=== PATIENT | male | born 1945 | race Caucasian/White ===

== ENCOUNTER 2022-06-11 10:55 | Day surgery (SDC) | payer OTHER ==
[2022-06-06 10:21] LABS: BASOPHILS # (AUTO) 0.1 X10'3 (0-0.2); BASOPHILS % (AUTO) 0.8 % (0-1); EOSINOPHILS # (AUTO) 0.5 X10'3 (0-0.9); EOSINOPHILS % (AUTO) 6.5 % (0-6); HEMATOCRIT 45.8 % (42.0-52.0); HEMOGLOBIN 15.3 g/dl (14.0-17.9); LYMPHOCYTES # (AUTO) 1.2 X10'3 (1.1-4.8); MEAN CORPUSCULAR HEMOGLOBIN 30.9 PG (27.0-31.0); MEAN CORPUSCULAR HGB CONC 33.5 g/dL (33.0-36.5); MEAN CORPUSCULAR VOLUME 92.3 FL (78-98); MONOCYTES # (AUTO) 0.5 X10'3 (0-0.9); MONOCYTES % (AUTO) 7.4 % (2-12); NEUTROPHILS # (AUTO) 4.8 X10'3 (1.8-7.7); NEUTROPHILS % (AUTO) 68.3 % (42-75); PLATELET COUNT 188 X10'3 (140-440); RED BLOOD COUNT 4.96 X10'6 (4.70-6.10); RED CELL DISTRIBUTION WIDTH 14.1 % (11.5-14.5); WHITE BLOOD COUNT 7.1 X10'3 (4.5-11.0)
[2022-06-06 10:30] LABS: APTT 30 SECONDS (22-32)
[2022-06-06 10:33] LABS: ANION GAP 6 (8-16); BLOOD UREA NITROGEN 14 MG/DL (7-18); BUN/CREATININE RATIO 15.4 (5.4-32.0); CHLORIDE 99 MMOL/L (99-107); CHOL/HDL RATIO 2.5 (0.00-4.99); CHOLESTEROL 140 MG/DL (0-200); CREATININE 0.91 MG/DL (0.60-1.10); GLUCOSE 98 MG/DL (70-104); HDL CHOLESTEROL 57 MG/DL (35-60); LDL CHOLESTEROL 72 MG/DL (50-100); SODIUM 137 MMOL/L (135-145); TOTAL CARBON DIOXIDE 32.1 MMOL/L (24-32); TRIGLYCERIDES 73 MG/DL (20-135); eGFR 81 ML/MIN
[~2022-06-11] VITALS: Ht 175.3 cm; Wt 92.3 kg
[2022-06-11] VITALS (8 sets, daily range): BP systolic 129–151; BP diastolic 70–86
[2022-06-11] MEDS ORDERED: LORazepam 0.5 MG tablet PO PRN (11:05)
[2022-06-11] MEDS ORDERED: diphenhydrAMINE 25mg capsule PO PRN (11:05)
[2022-06-11] MEDS ORDERED: normal saline 1,000 ML IV SCH (11:05)
[2022-06-11] MEDS ORDERED: CARB-17 PO (11:18)
[2022-06-11] MEDS ORDERED: ATOR40TA PO (11:19)
[2022-06-11] MEDS ORDERED: ASPI-1265 PO (11:19)
[2022-06-11] MEDS ORDERED: TRIAMCINOLONE (11:20)
[2022-06-11] MEDS ORDERED: PROP10TA10 PO (11:21)
[2022-06-11] MEDS ORDERED: HYDR25TA5 PO (11:22)
[2022-06-11] MEDS ORDERED: TRIH2TAB3 PO (11:23)
[2022-06-11] MEDS ORDERED: OMEG-5 PO (11:24)
[2022-06-11] MEDS ORDERED: [UNRECOGNIZED DRUG - CODE] (11:24)
[2022-06-11] MEDS ORDERED: nitroGLYCERIN-Tridil 50MG/D5W 250 ML IV ONE (13:28)
[2022-06-11] MEDS ORDERED: midazolam 1 mg/ML 2ml injection ONE (13:28)
[2022-06-11] MEDS ORDERED: verapamil 2.5 mg/ml inj IV ONE (13:28)
[2022-06-11] MEDS ORDERED: LIDOcaine 1% (10mg/ml) 2ml vial ONE (13:28)
[2022-06-11] MEDS ORDERED: iohexol 350MG/ML 100ml bottle IV ONE (13:29)
[2022-06-11] MEDS ORDERED: fentaNYL/PF 50MCG/1 ML 2ML syringe ONE (13:29)
[2022-06-11] MEDS ORDERED: heparin 1,000unit/ml 10ml vial 10 ML ONE (13:29)
[2022-06-11] MEDS ORDERED: LIDOcaine 1% 30ml preserv. free vial ONE (15:45)
[2022-06-11] MEDS ORDERED: HYDROcodone/acetaminophen 10/325mg tab PO PRN (16:35)
[2022-06-11] MEDS ORDERED: HYDROcodone/acetaminophen 5mg/325mg tablet PO PRN (16:35)
== END 2022-06-11 19:00 | disposition home or self-care (01) ==
LOC: SSTAY O 10:55
PROVIDERS: ATTEND Student in an Organized Health Care Education/Training Program
DX: R94.39 Abnormal result of other cardiovascular function study (principal); I25.728 Atherosclerosis of autologous artery coronary artery bypass graft(s) with other forms of angina pectoris; I10 Essential (primary) hypertension; I65.29 Occlusion and stenosis of unspecified carotid artery; G20 Parkinson's disease; Z87.891 Personal history of nicotine dependence; Z79.899 Other long term (current) drug therapy; Z79.82 Long term (current) use of aspirin
CPT/HCPCS: 36415; 80048; 80061; 85025; 85610; 85730; 93005; 93459; 99152; 99153; C1760; C1769; C1894; J1644; J2250; J3010; J3490; J7030; Q0163; Q9967; 93458; A6258; A6449